=== PATIENT | female | born 1940 | race Caucasian/White ===

== ENCOUNTER 2016-11-17 13:19 | Inpatient (IN) | payer MEDICARE ==
[~2016-11-17] VITALS: Ht 160 cm; Wt 44.5 kg
[~2016-11-17 13:19] MED LIST: AGGRENOX 25 MG1 EACH PO; AGGRENOX PO; CARAFATE1 GM PO; CLONAZEPAM1 MG PO; COLACE 100MG C100 MG PO; DULERA 100 MCG8.8 GM INH; DULERA 200 MCG8.8 GM INH; HYDRALAZINE HCL50 MG PO; ISOSORBIDE DINIT5 MG PO; K-DUR TAB 10 M10 MEQ PO; LASIX20 MG PO; LEVOTHYROXINE75 MCG PO; MIRALAX17 GM PO; NEPRO CARB ST1000 ML PO; NORVASC 5 MG TAB5 MG; NORVASC 5 MG TAB5 MG PO; NORVASC10 MG PO; OLANZAPINE5 MG; PRAVACHOL40 MG PO; PRAVASTATIN SOD40 MG PO; PROAIR HFA8.5 GM INH; PROCARDIA XL 3030 MG PO; SYMBICORT 160-1 INHA INH; TOPROL XL25 MG PO; TRAMADOL HCL50 MG PO; ZANTAC 150 MG150 MG PO; ZOFRAN4 MG PO
[2016-11-17 14:40] LABS: RED BLOOD COUNT 3.35 M/UL (4.00-5.10)
[2016-11-18] MEDS ORDERED: LINZESS145 MCG PO (02:10)
[2016-11-18] MEDS ORDERED: HYDRALAZINE HC100 MG PO (02:10)
[2016-11-18] MEDS ORDERED: PROTONIX40 MG PO (02:10)
[2016-11-18] MEDS ORDERED: ALBUTEROL0.63 MG/3 INH (02:11)
[2016-11-18] MEDS ORDERED: NORVASC 5 MG TAB5 MG PO (02:11)
[2016-11-18] MEDS ORDERED: ZOFRAN4 MG PO (02:11)
[2016-11-18] MEDS ORDERED: SPIRIVA18 MCG INH (02:12)
[2016-11-18 04:20] LABS: HEMOGLOBIN 8.7 gm/dl (12.3-15.3); RED BLOOD COUNT 3.26 M/UL (4.00-5.10); WHITE BLOOD COUNT 6.2 K/UL (4.5-11.0)
[2016-11-20 05:42] LABS: HEMOGLOBIN 9.6 gm/dl (12.3-15.3); RED BLOOD COUNT 3.52 M/UL (4.00-5.10); WHITE BLOOD COUNT 6.5 K/UL (4.5-11.0)
== END 2016-11-20 19:10 | disposition home or self-care (01) | DRG 186 ==
LOC: ER1 13:19 → ZEROF 19:08 → MED SURG 4 19:08
PROVIDERS: Internal Medicine; Specialist/Technologist Athletic Trainer; ADMIT Internal Medicine
DX: J90 Pleural effusion, not elsewhere classified (principal); N18.6 End stage renal disease; J98.11 Atelectasis; F17.210 Nicotine dependence, cigarettes, uncomplicated; J44.9 Chronic obstructive pulmonary disease, unspecified; I12.9 Hypertensive chronic kidney disease with stage 1 through stage 4 chronic kidney disease, or unspecified chronic kidney disease; I71.4 Abdominal aortic aneurysm, without rupture; I71.2 Thoracic aortic aneurysm, without rupture; I27.2 Other secondary pulmonary hypertension; I48.0 Paroxysmal atrial fibrillation; D64.9 Anemia, unspecified; E78.5 Hyperlipidemia, unspecified; E03.9 Hypothyroidism, unspecified; I25.10 Atherosclerotic heart disease of native coronary artery without angina pectoris; Z95.1 Presence of aortocoronary bypass graft; I73.9 Peripheral vascular disease, unspecified
CPT/HCPCS: 36415; 36600; 71010; 71020; 80048; 80053; 80202; 81001; 82550; 82553; 82803; 83605; 83690; 83735; 83880; 84439; 84443; 84484; 85025; 85027; 86140; 87040; 87081; 87086; 93005; 94640; 94664; 96365; 96366; 96367; 96375; 99285; J1650; J1940; J1956; J2270; J2405; J2543; J2550; J3370; J7050; J7070